=== PATIENT | male | born 1985 | race Caucasian/White ===

== ENCOUNTER 2020-06-12 06:21 | Day surgery (SDC) | payer MEDICAID ==
[2020-06-10 12:54] LABS: COVID AG,FIA SOURCE NASOPHARYNGEAL
[~2020-06-12] VITALS: Ht 177.8 cm; Wt 109.0 kg
[~2020-06-12 06:21] MED LIST: DIAZ5TAB4 PO; FAMO20 PO; SERT-440 PO
[2020-06-12] MEDS ORDERED: ALBUTEROL SULFATE 2.5 MG/0.5 ML NEB SOLUTION NEB ONE (06:22)
[2020-06-12] MEDS ORDERED: LIDOCAINE 2% 30 ML JELLY TP ONE (06:22)
[2020-06-12] MEDS ORDERED: BENZOCAINE 20% 50 MCG/SPRAY 57 GM TP ONE (06:22)
[2020-06-12] MEDS ORDERED: RINGERS SOLUTION,LACTATED 1,000 ML IV ONE (06:30)
[2020-06-12] MEDS ORDERED: SODIUM CHLORIDE 0.9% 1,000 ML ONE (07:40)
[2020-06-12] MEDS ORDERED: MIDAZOLAM HCL 5 MG/ML VIAL ONE (07:58)
[2020-06-12] MEDS ORDERED: FentaNYL CITRATE PF 100 MCG/2 ML VIAL ONE (07:58)
[2020-06-12] MEDS ORDERED: MethylPREDNISolone SOD SUCC 125 MG/2 ML VIAL IVP ONE (09:00)
[2020-06-12] MEDS ORDERED: OXYGEN THERAPY IH SCH (20:00)
== END 2020-06-12 11:35 | disposition home or self-care (01) ==
LOC: SURGERY 06:21
PROVIDERS: ATTEND Internal Medicine Critical Care Medicine
DX: J38.4 Edema of larynx (principal); B37.0 Candidal stomatitis; G47.33 Obstructive sleep apnea (adult) (pediatric); F12.90 Cannabis use, unspecified, uncomplicated; Z98.890 Other specified postprocedural states; Z72.89 Other problems related to lifestyle; J45.909 Unspecified asthma, uncomplicated; F41.9 Anxiety disorder, unspecified; Z79.899 Other long term (current) drug therapy
CPT/HCPCS: 31623; 31624; 71045; 71046; 87015; 87070; 87101; 87205; 87206; 87220; 87426; 88108; 88184; 88185; 88312; C9803; J2250; J2930; J3010; J7030; J7613